=== PATIENT | male | born 1935 | race Caucasian/White ===

== ENCOUNTER 2020-02-08 11:17 | Emergency (ER) | payer MEDICAID, MEDICARE ==
[2020-02-08 12:06] LABS: #Neutrophils 8.8 thou/uL (1.40-6.50); %Basophils 0.3 % (0.0-1.0); %Lymphocytes 9.3 % (21.0-51.0); %Neutrophils 81.4 % (42.0-75.0); Hemoglobin 14.8 g/dL (14.0-18.0); Mean Corpuscular HGB CONC 32.2 g/dL (32.0-36.0); Mean Corpuscular Hemoglobin 31.5 pg (27.0-31.0); Mean Corpuscular Volume 97.7 fL (78.0-98.0); Mean Platelet Volume 9.3 fL (7.4-10.4); Platelet Count 162 thou/uL (130-400); White Blood Cell (WBC) Count 10.8 thou/uL (4.8-10.8)
[2020-02-08 12:18] LABS: ALT (SGPT) 34 U/L (8-55); AST (SGOT) 26 U/L (5-34); Albumin 4.3 g/dL (3.4-4.8); Alkaline Phosphatase 103 U/L (40-110); Anion Gap 17 mmol/L (10-20); BUN (Urea Nitrogen) 47 mg/dL (8.4-25.7); Bilirubin, Total 2.1 mg/dL (0.2-1.2); CK (CPK) 349 U/L (30-200); Calc. Creatinine Clearance 0 mL/min (70-130); Calcium 9.7 mg/dL (7.8-10.44); Carbon Dioxide 23 mmol/L (23-31); Chloride 106 mmol/L (98-107); Estimated GFR-MDRD 40; Globulin 2.5 g/dL (2.4-3.5); Glucose 151 mg/dL (83-110); Protein, Total 6.8 g/dL (5.8-8.1); Sodium 143 mmol/L (136-145)
[2020-02-08 12:34] LABS: CKMB 4.5 ng/mL (0-6.6)
[2020-02-08 13:09] LABS: Bilirubin Small (Negative); Blood, Urine Trace (Negative); Clarity Clear (Clear); Glucose, Urine (Dipstick) Negative (Negative); Ketone, Urine 15 mg/dL (Negative); Leukocyte Negative (Negative); Nitrite Negative (Negative); Protein, Urine (Dipstick) Trace mg/dL (Neg-Trace); Specific Gravity, Urine 1.025 (1.005-1.030)
[2020-02-08 13:15] LABS: Bacteria/HPF 1+ HPF (None Seen); Mucous/LPF Rare LPF (<2+); RBC/HPF 0-3 HPF (0-3); Squamous Epithelial 0-3 HPF (0-3); WBC/HPF 0-3 HPF (0-3)
[2020-02-08] MEDS ORDERED: Potassium Chloride 20 MEQ TAB ONE (13:25)
[2020-02-08] MEDS ORDERED: Aspirin Chewable 81 MG TAB ONE (13:25)
--- NOTE | 2020-02-08 13:32 | CT ---
CT OF THE BRAIN WITHOUT CONTRAST: DATE: 02/08/2020. FINDINGS: Spiral CT of the brain was done and compared with a 11/11/2014 study. No intracranial bleeding or extraaxial hematoma was seen. There is progressive atrophy and progressi ve atrophy and aggressive compensatory dilatation of the ventricles in the interval. Patchy hypoluce ncy in the deep white matter typical of chronic ischemic change is noted and is a little more promine nt than it was before. There may have even been an old small stroke in the right medial frontal anayeli on. There is no finding strongly suggestive of acute stroke. No mass or edema was seen. The skull is intact and the visible paranasal sinuses are clear. IMPRESSION: 1. No acute traumatic findings. 2. Atrophy and chronic ischemic change with progression since 2014. Preliminary report called to Dr. Kaur at 1225 on 02/08/2020. CODE CR POS: HOME
--- NOTE | 2020-02-08 13:37 | RAD ---
PORTABLE CHEST: DATE: 02/08/2020. FINDINGS: An AP portable film at 1220 is compared with a 10/07/2013 study from [facility]. The hea rt is normal in size today. There is no vascular congestion, edema, or pleural effusion. The lungs are clear. Some old healed rib fractures are indicated in the left ribs posterolaterally. IMPRESSION: No acute thoracic finding. POS: HOME
--- NOTE | 2020-02-08 14:05 | RAD ---
RIGHT ELBOW 4 VIEWS: DATE: 02/08/2020. FINDINGS: No acute fracture or large joint effusion was seen. Ossification along each epicondyle suggests prio r tendinitis or injury. No bony destructive lesions are present. Arterial calcifications are presen t. IMPRESSION: Chronic changes, but no acute finding. POS: HOME
--- NOTE | 2020-02-08 14:13 | RAD ---
LEFT ELBOW: DATE: 02/08/2020. COMPARISON: Comparison is made with the right elbow. FINDINGS: No fracture or joint effusion was seen. A little ossification along the epicondyles, particularly th e medial epicondyle, is probably due to prior tendinitis or injury. A small amount of bony spurring is seen on the tip of the coronoid process of the ulna. IMPRESSION: No acute traumatic finding. POS: HOME
== END 2020-02-08 14:32 | disposition left against medical advice (07) ==
LOC: BURERS 11:17
DX: E86.0 Dehydration (principal); R79.89 Other specified abnormal findings of blood chemistry; E87.6 Hypokalemia; M62.82 Rhabdomyolysis; M10.9 Gout, unspecified; I10 Essential (primary) hypertension
CPT/HCPCS: 70450; 71045; 80053; 81003; 81015; 82550; 82553; 83605; 83880; 84443; 84484; 85025; 93005; 96360